=== PATIENT | female | born 1955 | race Caucasian/White ===

== ENCOUNTER → 2018-08-31 12:04 | Outpatient (CLI) | payer MEDICARE, MEDICAID, SELFPAY ==
--- NOTE | 2018-08-31 | DI.ECHO.S_ITS ---
[facility]---------+ [facility] +---------+ : : [address] : [address] : : : : [id number] : : : : Phone: [phone]+ Echocardiogram Report + + :Name: HILLARY SALAZAR Study Date: 08/31/2018 Height: 64 in : :[facility] Weight: 109 lb : : Gender: Female BSA: 1.5 m2 : :: 1955 Age: 62 yrs BP: 102/64 mmHg: :Reason For Study: SOB : :Ordering Physician: Hector : :Kenyatta Becker Performed By: Hillary Alcazar : + + Interpretation Summary The left ventricle is normal in size, wall thickness, and systolic function without any focal wall motion abnormalities. The ejection fraction is estimated to be 60-65%. The right ventricle grossly appears normal in size with probable normal systolic function. The left atrium is severely dilated. The mitral valve leaflets appear significantly thickened, but open well. The mitral valve leaflets are moderately calcified. There is moderate mitral stenosis. MVA by PHT is 1.5 cm2 and by planimetry is about 1.6cm2 as well. The eman pressure gradient across the mitral valve is 6.5 mmHg at heart rate of 74 bpm. There is severe mitral regurgitation. -Overall this echo shows a normal ejection fraction with severe MR an moderate MS, similar to the prior study. Mean gradient is unchanged; PA pressure is also similar. Procedure: A two-dimensional transthoracic echocardiogram with color flow and Doppler was performed. The study quality was technically good. Comparison is made with the echocardiogram of 04-07-17. The patient was in normal sinus rhythm during the exam. Left Ventricle: The left ventricle is normal in size, wall thickness, and systolic function without any focal wall motion abnormalities. The ejection fraction is estimated to be 60-65%. Diastolic parameters suggest a pseudonormalization pattern, consistent with probable elevated filling pressures. Right Ventricle: The right ventricle grossly appears normal in size with probable normal systolic function. Atria: The left atrium is severely dilated. Right atrial size is normal. There is no Doppler evidence for an interatrial shunt. Mitral Valve: The mitral valve leaflets appear significantly thickened, but open well. The mitral valve leaflets are moderately calcified. There is moderate mitral annular calcification. There is moderate mitral stenosis. There is severe mitral regurgitation. Aortic Valve: The aortic valve is trileaflet. The aortic valve opens well. There is no aortic valve stenosis. There is mild aortic regurgitation. Tricuspid Valve: The tricuspid valve leaflets are thin and pliable. There is mild to moderate tricuspid regurgitation. The right ventricular systolic pressure is estimated to be at least 42 mmHg based on an estimated right atrial pressure of 3 mm Hg. Pulmonic Valve: The pulmonic valve leaflets appear thickened, but open well. There is trace pulmonic regurgitation. Great Vessels: The aortic root is normal size. The dimensions of the ascending aorta are normal. The aortic arch is normal in size. The IVC is of normal diameter and collapses greater than 50% with a sniff. This suggests a low right atrial pressure of 3 mm Hg. Pericardium/ Pleura There is no pericardial effusion. There is no pleural effusion. MMode/2D Measurements & Calculations LVIDd: 4.1 cm Ao root diam: 3.0 cm LVIDs: 2.1 cm Aortic Jxn: 2.4 cm FS: 48.8 % asc Aorta Diam: 3.3 cm EPSS: 1.3 cm Ao Arch Diam (Prox Trans): 2.7 cm IVSd: 0.90 cm LVPWd: 0.85 cm LV crowell. diameter/BSA (cm/m^2): 2.7 LV sys. diameter/BSA (cm/m^2): 1.4 LA dimension: 5.5 cm RA long axis: 4.3 cm LA A2 area: 34.0 cm2 RA area: 13.5 cm2 LA A4 area: 33.7 cm2 RA vol: 35.7 ml LA length (vol): 6.8 cm RA : 23.6 ml/m2 LA vol: 143.6 ml IVC diam: 1.3 cm LA vol index: 95.0 ml/m2 RVDd major: 5.0 cm RVD1 (basal): 3.5 cm RVD2 (mid): 2.5 cm Doppler Measurements & Calculations Ao V2 max: 173.5 cm/sec AI P1/2t: 473.0 msec Ao V2 mean: 113.2 cm/sec AI dec slope: 227.7 cm/sec2 Ao max P.0 mmHg Ao mean P.0 mmHg Ao V2 VTI: 34.5 cm MV E max gorodn: 180.4 cm/sec TR max gordon: 310.9 cm/sec MV A max gordon: 157.8 cm/sec TR max P.7 mmHg MV E/A: 1.1 PA V2 max: 85.6 cm/sec Med Peak E' Gordon: 3.7 cm/sec PA V2 mean: 54.3 cm/sec E/E' med: 48.9 PA mean P.4 mmHg Lat Peak E' Gordon: 5.4 cm/sec PA Accel Time: 0.13 sec E/E' lat: 33.6 E/e' average: 41.3 MV dec time: 0.48 sec MV P1/2t: 142.1 msec MVA(traced): 1.6 cm2 MR ERO: 0.52 cm2 MV V2 mean: 260.2 cm/sec MV P1/2t max gordon: 183.0 cm/sec MV mean P.7 mmHg MVA(P1/2t): 1.5 cm2 MV V2 VTI: 103.1 cm MR flow rate: 247.7 cm3/sec MR PISA radius: 1.0 cm Electronically signed by: Hector You M.D. on Reading Physician:09/05/2018 06:17 PM
== END ==
PROVIDERS: Visit Provider Hospitalist
DX: R06.02 Shortness of breath (principal)
CPT/HCPCS: 93306